=== PATIENT | male | born 1975 | race African-American/Black ===

== ENCOUNTER 2021-05-07 05:44 | Emergency (ER) | payer OTHER ==
[~2021-05-07] VITALS: Ht 175.3 cm; Wt 99.8 kg
[~2021-05-07 05:44] MED LIST: DIPH12.529 PO
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
--- NOTE | 2021-05-07 07:15 | NUR ---
[employer] MACHINE OPERATOR AT BEDSIDE
[2021-05-07] MEDS ORDERED: IBUPROFEN 400 MG TABLET PO ONE (07:30)
[2021-05-07] MEDS ORDERED: IBUPROFEN 400 MG TABLET ONE (07:34)
[2021-05-07] MEDS ORDERED: CYCL10TA9 PO (08:26)
[2021-05-07] MEDS ORDERED: IBUP-1957 PO (08:26)
--- NOTE | 2021-05-07 08:44 | NUR ---
Patient discharged to home in stable condition. Written and verbal after care instructions given. Patient verbalizes understanding of instruction.
[2021-05-07 08:45] VITALS: BP 137/72
== END 2021-05-07 08:45 | disposition home or self-care (01) ==
LOC: ER 05:46
DX: M25.552 Pain in left hip (principal); M25.532 Pain in left wrist; I10 Essential (primary) hypertension; M54.50 Low back pain, unspecified; M25.511 Pain in right shoulder; Z60.2 Problems related to living alone; Z79.899 Other long term (current) drug therapy; V49.49XA Driver injured in collision with other motor vehicles in traffic accident, initial encounter; Y93.89 Activity, other specified; Y92.413 State road as the place of occurrence of the external cause; Y99.8 Other external cause status
CPT/HCPCS: 72110-TC; 73110; 73502